=== PATIENT | female | born 1985 | race Two or more races ===

== ENCOUNTER 2016-12-23 14:57 | Observation (INO) | payer SELFPAY ==
[~2016-12-23] VITALS: Ht 167.6 cm; Wt 56.7 kg
[~2016-12-23 14:57] MED LIST: FERR-26 PO; PNV1TABL25 AD
[2016-12-23] MEDS ORDERED: IV NORMAL SALINE 1000ML BAG 1,000 ML IV ONE ×2 (15:45→17:15)
[2016-12-23 15:47] LABS: BASO % 0 % (0-3); EOS % 1 % (0-3); HEMATOCRIT 38.2 % (36.0-47.0); HEMOGLOBIN 12.8 g/dL (12.0-15.5); LYMPH # 1.7 x10^3/uL (1.0-4.8); LYMPH % 18 % (24-48); MEAN CORPUSCULAR HEMOGLOBIN 30 pg (25-35); MEAN CORPUSCULAR HGB CONC 34 g/dL (31-37); MEAN CORPUSCULAR VOLUME 89 fL (79-100); MONO % 8 % (0-9); NEUT % 73 % (31-73); PLATELET COUNT 242 x10^3/uL (140-400); RED CELL DISTRIBUTION WIDTH 13.9 % (11.5-14.5); WHITE BLOOD COUNT 9.6 x10^3/uL (4.0-11.0)
[2016-12-23 15:49] LABS: BILIRUBIN,URINE NEGATIVE (NEG); GLUCOSE,URINE NEGATIVE (NEG); NITRITE,URINE NEGATIVE (NEG); PROTEIN,URINE NEGATIVE (NEG-TRACE); UROBILINOGEN,URINE 0.2 mg/dL (0.2 mg/dL)
[2016-12-23 15:53] LABS: BACTERIA,URINE 0 /HPF (0-FEW); SQUAMOUS EPITHELIAL CELL,UR FEW /LPF; WBC,URINE 0 /HPF (0-4)
[2016-12-23] MEDS ORDERED: BUTORPHANOL 2 MG/ML VIAL. IV ONE (16:00)
[2016-12-23 16:06] LABS: CALCIUM 9.1 mg/dL (8.5-10.1); CREATININE 0.5 mg/dL (0.6-1.0); GFR 144.9; POTASSIUM 3.8 mmol/L (3.5-5.1)
--- NOTE | 2016-12-23 16:12 | PHYS DOC ---
Past Medical History Past Medical History: No Pertinent History Past Surgical History: No Surgical History Alcohol Use: None Drug Use: None Adult General Chief Complaint Chief Complaint: VAGINAL BLEEDING HPI HPI Patient is a 31 year old English-speaking female who presents today with vaginal bleeding that began on Monday which is 6 days ago that got worse today where she soaked 4 pads in an hour and had clots. Patient states she thought it a was normal cycle. She states her periods are usually irregular. She states the last time she had a period was October 17, 2016. She is a 5 para 5. She is also complaining of lower abdominal cramping and some dizziness. Review of Systems Review of Systems Constitutional: Denies fever or chills [] Eyes: Denies change in visual acuity, redness, or eye pain [] HENT: Denies nasal congestion or sore throat [] Respiratory: Denies cough or shortness of breath [] Cardiovascular: No additional information not addressed in HPI [] GI: Lower abdominal cramping and vaginal bleeding : Denies dysuria or hematuria [] Musculoskeletal: Denies back pain or joint pain [] Integument: Denies rash or skin lesions [] Neurologic: Dizziness Endocrine: Denies polyuria or polydipsia [] Current Medications Current Medications Current Medications Medications (Trade) Dose Ordered Sig/Patricia Start Time Stop Time Status Last Admin Dose Admin Butorphanol Tartrate (Stadol) 2 mg 1X ONCE 12/23/16 16:00 12/23/16 16:01 DC 12/23/16 16:19 2 MG Sodium Chloride 1,000 ml @ 1,000 mls/hr 1X ONCE 12/23/16 15:45 12/23/16 16:44 DC 12/23/16 15:41 1,000 MLS/HR Allergies Allergies Allergies Coded Allergies Type Severity Reaction Last Updated Verified No Known Drug Allergies 04/16/16 No Physical Exam Physical Exam Constitutional: Well developed, well nourished, no acute distress, non-toxic appearance. [] HENT: Normocephalic, atraumatic, bilateral external ears normal, oropharynx moist, no oral exudates, nose normal. [] Eyes: PERRLA, EOMI, conjunctiva normal, no discharge. [] Neck: Normal range of motion, no tenderness, supple, no stridor. [] Cardiovascular:Heart rate regular rhythm, no murmur [] Lungs & Thorax: Bilateral breath sounds clear to auscultation [] Abdomen: Bowel sounds normal, soft, no tenderness, no masses, no pulsatile masses. [] pelvic exam External pelvic is covered with blood. Speculum was placed in the cervix, large amount of clots started coming out with no end. Dr. Pereira came to examine patient and we put a consult to Dr. Kalia garcia. Skin: Warm, dry, no erythema, no rash. [] Back: No tenderness, no CVA tenderness. [] Extremities: No tenderness, no cyanosis, no clubbing, ROM intact, no edema. [] Neurologic: Alert and oriented X 3, normal motor function, normal sensory function, no focal deficits noted. [] Psychologic: Affect normal, judgement normal, mood normal. [] Current Patient Data Vital Signs Vital Signs Date Time Temp Pulse Resp B/P (MAP) Pulse Ox O2 Delivery O2 Flow Rate FiO2 12/23/16 16:35 82 16 103/61 (75) 97 Room Air 12/23/16 15:17 98.9 98.9 Lab Values Laboratory Tests Test 12/23/16 13:15 12/23/16 15:34 White Blood Count 9.6 x10^3/uL (4.0-11.0) Red Blood Count 4.30 x10^6/uL (3.50-5.40) Hemoglobin 12.8 g/dL (12.0-15.5) Hematocrit 38.2 % (36.0-47.0) Mean Corpuscular Volume 89 fL (79-100) Mean Corpuscular Hemoglobin 30 pg (25-35) Mean Corpuscular Hemoglobin Concent 34 g/dL (31-37) Red Cell Distribution Width 13.9 % (11.5-14.5) Platelet Count 242 x10^3/uL (140-400) Neutrophils (%) (Auto) 73 % (31-73) Lymphocytes (%) (Auto) 18 % (24-48) L Monocytes (%) (Auto) 8 % (0-9) Eosinophils (%) (Auto) 1 % (0-3) Basophils (%) (Auto) 0 % (0-3) Neutrophils # (Auto) 7.1 x10^3uL (1.8-7.7) Lymphocytes # (Auto) 1.7 x10^3/uL (1.0-4.8) Monocytes # (Auto) 0.7 x10^3/uL (0.0-1.1) Eosinophils # (Auto) 0.1 x10^3/uL (0.0-0.7) Basophils # (Auto) 0.0 x10^3/uL (0.0-0.2) Maternal Serum HCG Beta Subunit 58010 mIU/mL (0-6) H Sodium Level 137 mmol/L (136-145) Potassium Level 3.8 mmol/L (3.5-5.1) Chloride Level 101 mmol/L (98-107) Carbon Dioxide Level 23 mmol/L (21-32) Anion Gap 13 (6-14) Blood Urea Nitrogen 8 mg/dL (7-20) Creatinine 0.5 mg/dL (0.6-1.0) L Estimated GFR (Cockcroft-Gault) 144.9 Glucose Level 93 mg/dL (70-99) Calcium Level 9.1 mg/dL (8.5-10.1) Urine Collection Type U cath Urine Color Yellow Urine Clarity Clear Urine pH 6.0 Urine Specific [place] <=1.005 Urine Protein Negative mg/dL (NEG-TRACE) Urine Glucose (UA) Negative mg/dL (NEG) Urine Ketones (Stick) 40 mg/dL (NEG) Urine Blood Trace (NEG) Urine Nitrite Negative (NEG) Urine Bilirubin Negative (NEG) Urine Urobilinogen Dipstick 0.2 mg/dL (0.2 mg/dL) Urine Leukocyte Esterase Negative (NEG) Urine RBC 1-2 /HPF (0-2) Urine WBC 0 /HPF (0-4) Urine Squamous Epithelial Cells Few /LPF Urine Bacteria 0 /HPF (0-FEW) Urine Mucus Slight /LPF Laboratory Tests 12/23/16 13:15 Laboratory Tests 12/23/16 13:15 EKG EKG [] Radiology/Procedures Radiology/Procedures [] Course & Med Decision Making Course & Med Decision Making Pertinent Labs and Imaging studies reviewed. (See chart for details) Patient is in the ED with complaints of vaginal bleeding that began 6 days ago and got worse today. Her last cycle was 10/17/2016 she states he periods are irregular. On pelvic exam she had a large amount of clots with no end in the cervix, Dr. Pereira came and examined the patient. The exam had to be stopped. We did consult Dr. Motta who came right away to evaluate patient. He did remove most of the clots and the bleeding slowed down, patient was admitted for observation. Patient has a positive test. She has an incomplete . Patient is O-, Rhogham, was ordered. CBC with hgb of 12.8 and HCT of 38.2 Vitals on arrival to the ED blood pressure is 127/75, heart rate 100, O2 sats 97 % on room air, respiration 18, temperature 98.9. Normal saline going on admission. Dragon Disclaimer Dragon Disclaimer This electronic medical record was generated, in whole or in part, using a voice recognition dictation system. Departure Departure Impression: Primary Impression: Incomplete Additional Impressions: Need for rhogam due to Rh negative mother Type O blood, Rh negative Disposition: ADMITTED INPATIENT Admitting Physician: Other Condition: STABLE Referrals: NO PCP (PCP) Problem Qualifiers TETO LEBLANC APRN December 23, 2016 16:12
[2016-12-23] MEDS ORDERED: ACETAMINOPHEN 325 MG TABLET. PO PRN (17:15)
[2016-12-23] MEDS ORDERED: ONDANSETRON PF 4 MG/2 ML VIAL. IV PRN (17:15)
[2016-12-23] MEDS ORDERED: MORPHINE SULFATE 2 MG/ML DISP.SYRIN. IV PRN (17:15)
[2016-12-23 17:47] VITALS: BP 108/66
[2016-12-23 21:23] VITALS: BP 112/64
[2016-12-23 22:33] LABS: HEMATOCRIT 29.2 % (36.0-47.0); HEMOGLOBIN 9.9 g/dL (12.0-15.5); RED BLOOD COUNT 3.26 x10^6/uL (3.50-5.40); RED CELL DISTRIBUTION WIDTH 13.6 % (11.5-14.5); WHITE BLOOD COUNT 9.2 x10^3/uL (4.0-11.0)
[2016-12-24 01:30] VITALS: BP 88/57
[2016-12-24 05:04] VITALS: BP 90/56
--- NOTE | 2016-12-24 05:05 | PDOC ---
Provider Note Provider Note Chart reviewed Pt without complaints Min VB Abd soft NTTP Rhogam before DC PATEL HILARIO MD December 24, 2016 05:05
[2016-12-24 05:10] LABS: BASO % 0 % (0-3); EOS % 1 % (0-3); HEMATOCRIT 27.6 % (36.0-47.0); HEMOGLOBIN 9.3 g/dL (12.0-15.5); LYMPH # 1.3 x10^3/uL (1.0-4.8); LYMPH % 16 % (24-48); MEAN CORPUSCULAR HEMOGLOBIN 30 pg (25-35); MEAN CORPUSCULAR HGB CONC 34 g/dL (31-37); MEAN CORPUSCULAR VOLUME 89 fL (79-100); MONO % 9 % (0-9); NEUT % 74 % (31-73); PLATELET COUNT 182 x10^3/uL (140-400); RED BLOOD COUNT 3.09 x10^6/uL (3.50-5.40); RED CELL DISTRIBUTION WIDTH 13.5 % (11.5-14.5); WHITE BLOOD COUNT 7.9 x10^3/uL (4.0-11.0)
[2016-12-24 05:34] LABS: CREATININE 0.4 mg/dL (0.6-1.0); GFR 187.4; POTASSIUM 3.6 mmol/L (3.5-5.1)
[2016-12-24 10:30] VITALS: BP 96/62
== END 2016-12-24 12:00 | disposition home or self-care (01) ==
LOC: ER 16:45 → 3 NORTH 16:54
PROVIDERS: ADMIT Obstetrics & Gynecology; ATTEND Obstetrics & Gynecology
DX: O03.4 Incomplete spontaneous abortion without complication (principal); O26.891 Other specified pregnancy related conditions, first trimester; R42 Dizziness and giddiness; R10.30 Lower abdominal pain, unspecified; Z3A.01 Less than 8 weeks gestation of pregnancy
CPT/HCPCS: 36415; 80048; 81001; 81025; 84702; 85027; 86850; 86900; 86901; 96361; 96374; 99285; G0378; G0379; J2791; J7030

== ENCOUNTER 2017-02-13 07:59 | Emergency (ER) | payer SELFPAY ==
[~2017-02-13] VITALS: Ht 167.6 cm; Wt 56.7 kg
--- NOTE | 2017-02-13 08:36 | PHYS DOC ---
Past Medical History Past Medical History: No Pertinent History Past Surgical History: Appendectomy Alcohol Use: Occasionally Drug Use: None Adult General Chief Complaint Chief Complaint: Neck Pain HPI HPI Patient is a pleasant 31-year-old female otherwise healthy with no major medical problems no prior surgeries who does not smoke does not drink doesn't use IV drugs presents with neck pain that began about 3 AM this morning. She has 5 children at home. The youngest is approximately 9 months of age who she still picks up frequently. This morning at 3 AM she awoke with neck pain on the left with radiation to the lateral left shoulder and anterior portion of the chest wall. It is constant in nature with increased pain with range of motion of the neck direct pressure on the neck and shoulder. She denies any trauma, denies any fever, denies any weakness or numbness. She's not had this in the past. She denies headache, changes in vision, or recent cold runny nose rash or other symptoms. At this point patient's pain is moderate 8 of 10 she is here with her sister. She denies any abuse at home. Review of Systems Review of Systems Constitutional: Denies fever or chills [] Eyes: Denies change in visual acuity, redness, or eye pain [] HENT: Denies nasal congestion or sore throat [] Respiratory: Denies cough or shortness of breath [] Cardiovascular: No additional information not addressed in HPI [] GI: Denies abdominal pain, nausea, vomiting, bloody stools or diarrhea [] : Denies dysuria or hematuria [] Musculoskeletal: Patient does complain of left shoulder pain and left-sided neck pain. Integument: Denies rash or skin lesions [] Neurologic: Denies headache, focal weakness or sensory changes [] Endocrine: Denies polyuria or polydipsia [] Current Medications Current Medications Current Medications Medications (Trade) Dose Ordered Sig/Patricia Start Time Stop Time Status Last Admin Dose Admin Diazepam (Valium) 5 mg 1X ONCE 02/13/17 08:45 02/13/17 08:46 DC 02/13/17 09:18 5 MG Ketorolac Tromethamine (Toradol Im) 60 mg 1X ONCE 02/13/17 08:45 02/13/17 08:46 DC 02/13/17 09:19 60 MG Allergies Allergies Allergies Coded Allergies Type Severity Reaction Last Updated Verified No Known Drug Allergies 04/16/16 No Physical Exam Physical Exam This patient's vital signs been reviewed by me they are normal Constitutional: Well developed, well nourished, no acute distress, non-toxic appearance. [] HENT: Normocephalic, atraumatic, bilateral external ears normal, oropharynx moist, no oral exudates, nose normal. [] Eyes: PERRLA, EOMI, conjunctiva normal, no discharge. [] Neck: Patientdecreased range of motion with tenderness along the trapezius as it inserts into the occiput. It is pain is easily reproducible and focally tender. She demonstrates no midline tenderness to palpation. She does have tenderness along the right rhomboid major and minor on the left side as well with radiation to the lateral shoulder. She demonstrates no rash no signs of trauma. There is also no bony point tenderness to palpation. Patient is slight tenderness palpation on the anterior chest wall over the pectoralis major muscle on the left upper wall. There is also no rash no soft tissue swelling or trauma. Cardiovascular:Heart rate regular rhythm, no murmur [] Lungs & Thorax: Bilateral breath sounds clear to auscultation [] Skin: Warm, dry, no erythema, no rash. [] Back: no CVA tenderness.Tenderness along the rhomboid major and minor reproducible on exam exactly she is experiencing it. Extremities:no cyanosis, no clubbing, ROM intact, no edema he does demonstrate reproducible tenderness to palpation over the left anterior shoulder. Neurologic: Alert and oriented X 3, normal motor function, normal sensory function, no focal deficits noted. [] Psychologic: Affect normal, judgement normal, mood normal. [] Current Patient Data Vital Signs Vital Signs Date Time Temp Pulse Resp B/P (MAP) Pulse Ox O2 Delivery O2 Flow Rate FiO2 02/13/17 09:14 70 16 123/85 (98) 97 02/13/17 08:04 98.3 Room Air 98.3 EKG EKG [] EKG timed at 9:16 AM 02/13/2017 demonstrates normal sinus rhythm 65. All of 142 QRS of 74 QTC of 419 this is a normal EKG read by Dr. Stein. Radiology/Procedures Radiology/Procedures [] Course & Med Decision Making Course & Med Decision Making Pertinent Labs and Imaging studies reviewed. (See chart for details) During patient's acute symptoms reproducible neck pain on exam without fever or chills signs of trauma. Patient is a normal neuro exam and normal EKG I believe this is most the skull pleural call us and chest wall pain. I did some Toradol and IV in the emergency department which did improve her symptoms already she' ll be discharged in the appropriate medication to relieve her of this muscle spasm in her neck. Impression: Torticollis, chest wall pain improved Disposition: PCP follow-up routine return for any worsening or new symptoms. Dragon Disclaimer Dragon Disclaimer This electronic medical record was generated, in whole or in part, using a voice recognition dictation system. Departure Departure Impression: Primary Impression: Torticollis, acute Additional Impression: Chest wall pain Disposition: HOME, SELF-CARE Condition: IMPROVED Referrals: NO PCP (PCP) Patient Instructions: Chest Pain (Nonspecific), Chest Wall Pain, Torticollis, Acute Scripts Diazepam (VALIUM) 5 Mg Tablet 5 MG PO TID for MUSCLE SPASMS for 5 Days, #15 TAB Prov: PHUONG STEIN MD 02/13/17 Acetaminophen (TYLENOL) 325 Mg Tablet 1-2 TAB PO QID, #60 TAB 2 Refills Prov: PHUONG STEIN MD 02/13/17 Naproxen (NAPROSYN) 500 Mg Tablet 1 TAB PO BID, #14 TAB 1 Refill Prov: PHUONG STEIN MD 02/13/17 Problem Qualifiers PHUONG STEIN MD Feb 13, 2017 08:36
[2017-02-13] MEDS ORDERED: KETOROLAC TROMETHAMINE 60 MG/2 ML INJ. IM ONE (08:45)
[2017-02-13] MEDS ORDERED: ACET325T9 PO (09:02)
[2017-02-13] MEDS ORDERED: DIAZ5TAB PO (09:02)
[2017-02-13] MEDS ORDERED: NAPR500T PO (09:02)
[2017-02-13 09:30] VITALS: BP 114/69
--- NOTE | 2017-02-13 11:30 | EKG ---
[facility] [address] [place] [id number] Test Date: 2017-02-13 Test Time: 09:16:16 Pat Name: GEENA KRAMER Department: Room: Gender: F [employer]: : 1985 Requested By: PHUONG STEIN Order Number: [id number] Reading MD: Measurements Intervals [place] Rate: 65 P: 49 MO: 142 QRS: 24 QRSD: 74 T: 30 QT: 398 QTc: 419 Interpretive Statements SINUS RHYTHM RI6.01 Unconfirmed report No previous ECG available for comparison
== END 2017-02-13 10:13 | disposition home or self-care (01) ==
LOC: ER 08:42
DX: M43.6 Torticollis (principal); R07.89 Other chest pain; Z90.49 Acquired absence of other specified parts of digestive tract
CPT/HCPCS: 93005; 96372; 99284; J1885; J3360